=== PATIENT | female | born 1950 | race Caucasian/White ===

== ENCOUNTER → 2021-01-16 | Outpatient (CLI) | payer MEDICARE | LOC: HEART 5 12-27 08:30 → EXRD 08:16 | DX: M81.0 Age-related osteoporosis without current pathological fracture (principal) | CPT/HCPCS: 77080; 93306 ==

== ENCOUNTER → 2021-03-26 | Outpatient (CLI) | payer MEDICARE | LOC: MAMO 13:43 | DX: N63.20 Unspecified lump in the left breast, unspecified quadrant (principal) | CPT/HCPCS: 76641-LT ==